=== PATIENT | female | born 1995 | race Caucasian/White ===

== ENCOUNTER 2024-12-24 10:09 | Outpatient (CLI) | payer BC, SELFPAY ==
--- OUTSIDE RECORDS SUMMARY | 2024-12-24 10:31 | XMS_ITS | Clinical Summary ---
Author Organization [facility] Address 1 [place] [address] Care Team Providers Care Realty Specialist Name Role Phone Enedina Brand MD Primary Care Provide r Allergies No known active allergies Medications meclizine (ANTIVERT) 12.5 mg tabletIndicatio ns:Vertigo Take 1 tablet (12.5 mg total) by mouth 3 (three) times a day as needed for dizziness 30 tablet 4 2 Active benzonatate (TESSALON) 100 mg capsuleIndicati ons:Cough Take 1 capsule (100 mg total) by mouth 3 (three) times a day as needed for cough 42 capsule 4 Active Active Problems Problem Noted Date Diagnosed Date Hair loss 05/05/2023 Assessment & Plan (05/05/2023 3:44 PM CDT): New Worsening Likely from stopping the control Recommend rogaine, black castor oil, and mielle organic oil to help Start with the rogaine for 3 months to see any changes then try the other options TSH ordered F/u if no improvement Class 1 obesity with body ma ss index (BMI) of 31.0 to 31.9 in adult 05/05/2023 Assessment & Plan (05/05/2023 3:44 PM CDT): She was counseled on the importance of maintaining a healthy weight and the risks of obesity. Weight loss recommended. Encounter for wellness examination 01/27/2023 Assessment & Plan (05/05/2023 3:45 PM CDT): Ordered CBC, cmp, lipid, hgb a1c, HIV, hep c, TSH w/ reflex to t4 Flu declines F/u in 1 year for annual Mild intermittent asthma without complication Assessment & Plan (05/03/2023 1:55 PM CDT): Stable / clinically quiescent. Will continue to monitor. BMI 32.0-32.9,adult 07/07/2017 Resolved Problems Problem Noted Date Diagnosed Date Resolved Date Abdominal wall strain, initial encounter 10/13/2019 06/13/2020 Acute suprapubic pain 10/13/20192019 Mild persistent asthma with acute exacerbation 07/07/2017 06/13/2020 Assessment & Plan (07/07/2017 10:54 AM LINUX UNIX SYSTEM ADMINISTRATOR): Asthma seems stable at this time based on subjective data. Very mild wheezing the right upper lobe to which I advised patient to start back on her Advair 250/50 mcg 1 puff twice daily along with refilling her ProAir to use p.r.n.. For the exacerbation however I did prescribed Medrol Dosepak to take as prescribed additionally will take about 5-7 days for the Advair to kick in tablets stability of asthma. We discussed doing a spirometry test to which she said she is fine to wait on considering her acute exacerbation it might through the testing accuracy off. We will touch base with her here in a month and see how the asthma is going and certainly sooner if there is worsening in symptoms after completing management advised office today. Encounters Date Type Department Care Team Description 12/18/2024 Telephone [facility] Primary Care at [address] [place] [address] Enedina Brand MD 09/28/2024 8:45 AM LINUX UNIX SYSTEM ADMINISTRATOR Office Visit [facility] [place] [address] [place] [address] Alma Schumacher, BURN OUT SCARFING OPERATOR COVID-19 (Primary Dx) from Last 3 Months Immunizations Immunization Administration Dates Next Due DTP / HiB 1996,1996,1996 DTaP, Unspecified 09/22/2000,07/17/1997 Hep B, Unspecified 1996,1996, 996 HiB 04/17/1997 IPV 09/22/2000 Influenza, Quadrivalent, Spl it, Preservative Free, Intramuscular 05/23/2021,06/13/2020,06/21/2019,04/25,05/12/2017 Influenza, Trivalent, Preser vative Free, Intramuscular 06/10/2011 MMR 09/22/2000,04/17/1997 Meningococcal Conjugate (Menveo) 02/08/2012 Meningococcal Polysaccharide (Menomune) 04/13/2008 OPV 07/17/1997,1996,1996 Tdap 09/10/2016,02/03/2006 Surgical History Surgery Date Site/Laterality Comments OTHER SURGICAL HISTORY 01-[place]: Dr. Darrius Menendez Medical History Medical History Date Comments Airway hyperreactivity Asthma; C omments: JEC 11/17/2016 - Migraine headache Headache, migr juliet Hx Other Medical 01-[place] Family History Medical History Relation Name Comments Other Father Alive and well; Diabetes Maternal Grandfather Diabete s mellitus; Other Mother Alive and well; Other Other 1 No family histo ry of Cancer, colon; Other Other 2 No family histo ry of Early Heart Disease; Asthma Sister Asthma; Relation Name Status Comments Father Alive Maternal Grandfather Mother Alive Other 1 Other 2 Sister Social History Tobacco Use Types Packs/Day Years Used Date Smoking Tobacco: Never Smokeless Tobacco: Never Tobacco Cessation:Counseling Given: Not Answered Alcohol Use Standard Drinks/Week Comments No 0 (1 standard drink = 0.6 oz pur e alcohol) PHQ-2 Answer Date Recorded PHQ-2 Total Score (If total score is 3 or more points, staff should administer the PHQ-9) 0 05/05/2023 Comments No Sex and Gender Information Value Date Recorded Sex Assigned at Not on file Legal Sex Female 3:58 AM LINUX UNIX SYSTEM ADMINISTRATOR Gender Identity Female 06/25/2021 6:46 AM LINUX UNIX SYSTEM ADMINISTRATOR Sexual Orientation Not on file Obstetrics History Last Filed Vital Signs Vital Sign Reading Time Taken Comments Blood Pressure 128/78 09/28/2024 8:52 AM LINUX UNIX SYSTEM ADMINISTRATOR Pulse 118 09/28/2024 8:52 AM LINUX UNIX SYSTEM ADMINISTRATOR Temperature 36.5 C (97.7 F) 09/28/2024 8:52 AM LINUX UNIX SYSTEM ADMINISTRATOR Respiratory Rate 20 09/28/2024 8:52 AM LINUX UNIX SYSTEM ADMINISTRATOR Oxygen Saturation 99% 09/28/2024 8:52 AM LINUX UNIX SYSTEM ADMINISTRATOR Inhaled Oxygen Concentration - - Weight 87.1 kg (192 lb) 09/28/2024 8:52 AM LINUX UNIX SYSTEM ADMINISTRATOR Height 160 cm (5' 3 ) 09/28/2024 8:52 AM LINUX UNIX SYSTEM ADMINISTRATOR Body Mass Index 34.01 09/28/2024 8:52 AM LINUX UNIX SYSTEM ADMINISTRATOR Plan of Treatment Health Maintenance Due Date Last Done Comments Cervical Cancer Screening 1996 Varicella Vaccines (1 of 2 - 13+ 2-dose series) 01/13/2009 Pneumococcal vaccine <65 (1 of 2 - PCV) 01/13/2015 Covid-19 Vaccine ( season) 2024 11/18/2020, 10/28/2020 Depression Screening 05/05/2024 05/05/2023, 10/30/2021, 07/02/2021, Additional history exists Regular Well Visit/Exam 18-64 05/05/2024 05/05/2023, 07/02/2021, 06/13/2020 Influenza Vaccine (Season Ended) 2025 05/23/2021, 06/13/2020, 06/21/2019, Additional history exists DTaP/Tdap/Td Vaccine (8 - Td or Tdap) 09/10/2026 09/10/2016, 02/03/2006, 09/22/2000, Additional history exists Hepatitis B Screening Completed 1996 , 1996, 1996 Hepatitis C Screening Completed 05/12/2023 HPV Vaccines Aged Out No longer eligi ble based on patient's age to complete this topic Procedures Procedure Name Priority Date/Time Associated Diagnosis Comments POC INFLUENZA A/B, COVID-19 ANTIGEN Routine 09/28/2024 9:03 AM LINUX UNIX SYSTEM ADMINISTRATOR COVID-19 HEPATITIS C ANTIBODY Routine 05/12/2023 8:18 AM CDT Preventative health care Need for hepatitis C screening test from Last 3 Months or Most Recently Relevant to Health Maintenance Results * (ABNORMAL) POC Influenza A/B, COVID-19 antigen (09/28/2024 9:03 AM LINUX UNIX SYSTEM ADMINISTRATOR) Influenza A Ag, POC Negative Negative [facility] Influenza B Ag, POC Negative Negative [facility] COVID-19 Ag POC Positive(A) Presumptive Negative, Invalid [facility] Nasal 09/28/2024 9:03 AM LINUX UNIX SYSTEM ADMINISTRATOR Alma Schumacher NP POINT OF CARE TEST ORDERABLES Fi nal Result Performing Organization Address [facility]/ZIP Co de Phone Number [facility] [address] [place] [address], [facility] * Hepatitis C antibody Blood (05/12/2023 8:18 AM CDT) Pathologist [facility] Hep C Ab Nonreactive Nonreactive Comment: Interpretive Data Nonreactive: Antibodies to HCV not detected. Does NOT exclude the possibility of recent exposure to HCV. Equivocal: Equivocal for HCV antibodies. Supplemental molecular testing will be automatically performed to determine infection status in accordance with current CDC screening recommendations. Reactive: Positive for HCV antibodies. This may represent current or past HCV infection. Supplemental molecular testing will be automatically performed to determine current infection status in accordance with current CDC screening recommendations. Interpretive data was last revised on 2019. Testing performed by: [facility], [address] [place] [address]., [id number] Blood 05/12/2023 8:18 AM CDT 05/12/2023 12:07 PM CDT Narrative KASEY MASTERSON (MARCELLE) - 05/12/2023 1:04 PM CDT fasting Enedina Brand MD LAB MICROBIOL OGY - GENERAL ORDERABLES Edited Result - Final KASE[facility] MASTERSON (MARCELLE) 1 [facility] [place] [address] from Last 3 Months or Most Recently Relevant to Health Maintenance Additional Health Concerns Infection Onset Date Last Indicated COVID: Recovered Comment:Added based on recent COVID infection. 10/08/2024 025 Insurance ANTHEM ACCESS Care Teams Realty Specialist Relationship Specialty Start Date End Date Enedina Brand MD [address] [place] [address] PCP - General Family Medicine 05/06/23
--- OUTSIDE RECORDS SUMMARY | 2024-12-24 10:31 | XMS_ITS | Referral Summary ---
Author Organization [facility] Address 1 [place] [address] Care Team Providers Care Light Fixture Servicer Name Role Phone Enedina Brand MD Primary Care Provide r Encounters Date Type Department Care Team Description 12/18/2024 Telephone [facility] Primary Care at [place] [address] [facility] [address] [place] [address] Enedina Brand MD 09/28/2024 8:45 AM HANDBAG DESIGNER Office Visit [facility] at [place] [address] [place] [address] Alma Schumacher NP COVID-19 (Primary Dx) from Last 3 Months Allergies No known active allergies Medications meclizine [...] 06/13/2020 Assessment & Plan (07/07/2017 10:54 AM HANDBAG DESIGNER): Asthma seems stable at this time based [...] symptoms after completing management advised office today. Immunizations Immunization Administration Dates Next Due DTP / HiB 1996,1996,1996 DTaP, Unspecified 09/22/2000,07/17/1997 Hep B, Unspecified 1996,1996, 996 HiB 04/17/1997 IPV 09/22/2000 Influenza, Quadrivalent, Spl it, Preservative Free, Intramuscular 05/23/2021,06/13/2020,06/21/2019,04/25,05/12/2017 Influenza, Trivalent, Preser vative Free, Intramuscular 06/10/2011 MMR 09/22/2000,04/17/1997 Meningococcal Conjugate (Menveo) 02/08/2012 Meningococcal Polysaccharide (Menomune) 04/13/2008 OPV 07/17/1997,1996,1996 Tdap 09/10/2016,02/03/2006 Social History Tobacco Use Types Packs/Day Years [...] on file Legal Sex Female 3:58 AM HANDBAG DESIGNER Gender Identity Female 06/25/2021 6:46 AM HANDBAG DESIGNER Sexual Orientation Not on file Last Filed Vital Signs Vital Sign Reading Time Taken Comments Blood Pressure 128/78 09/28/2024 8:52 AM HANDBAG DESIGNER Pulse 118 09/28/2024 8:52 AM HANDBAG DESIGNER Temperature 36.5 C (97.7 F) 09/28/2024 8:52 AM HANDBAG DESIGNER Respiratory Rate 20 09/28/2024 8:52 AM HANDBAG DESIGNER Oxygen Saturation 99% 09/28/2024 8:52 AM HANDBAG DESIGNER Inhaled Oxygen Concentration - - Weight 87.1 kg (192 lb) 09/28/2024 8:52 AM HANDBAG DESIGNER Height 160 cm (5' 3 ) 09/28/2024 8:52 AM HANDBAG DESIGNER Body Mass Index 34.01 09/28/2024 8:52 AM HANDBAG DESIGNER Plan of Treatment Not on file Procedures Procedure Name Priority Date/Time Associated Diagnosis Comments POC INFLUENZA A/B, COVID-19 ANTIGEN Routine 09/28/2024 9:03 AM HANDBAG DESIGNER COVID-19 HEPATITIS C ANTIBODY Routine 05/12/2023 8:18 AM CDT Preventative health care Need for hepatitis C screening test from Last 3 Months or Most Recently Relevant to Health Maintenance Results * (ABNORMAL) POC Influenza A/B, COVID-19 antigen (09/28/2024 9:03 AM HANDBAG DESIGNER) Influenza A Ag, POC Negative Negative [facility] Influenza B Ag, POC Negative Negative [facility] COVID-19 Ag POC Positive(A) Presumptive Negative, Invalid [facility] Nasal 09/28/2024 9:03 AM HANDBAG DESIGNER Alma Schumacher NP POINT OF CARE TEST ORDERABLES Fi nal Result [facility] [address] [place] [address] * Hepatitis C antibody Blood (05/12/2023 8:18 AM CDT) Pathologist [facility] Hep C Ab Nonreactive Nonreactive Comment: Interpretive [...] last revised on 2019. Testing performed by: [facility], [address] [place] [address], [place]., [address] Blood 05/12/2023 8:18 AM CDT 05/12/2023 12:07 PM CDT Narrative [facility] ([place]) - 05/12/2023 1:04 PM CDT fasting Enedina Brand MD LAB MICROBIOL OGY - GENERAL ORDERABLES Edited Result - Final [facility] ([place]) [address] [facility] Department [place] [address] from Last 3 Months or Most Recently Relevant to Health Maintenance Additional Health Concerns Infection Onset Date Last Indicated COVID: Recovered Comment:Added based on recent COVID infection. 10/08/2024 025 Insurance ANTHEM ACCESS Care Teams Light Fixture Servicer Relationship Specialty Start Date End Date Enedina Brand MD [address] [place] [address] PCP - General Family Medicine 05/06/23
[2024-12-24 10:52] LABS: Add Urine Microscopic? YES; Appearance Urine Clear (Clear); Bacteria Urine 1+ /hpf; Bilirubin Urine Negative (Negative); Blood Urine Negative (Negative); Color Urine Yellow (Yellow); Glucose Urine UA Negative (Negative); Ketones Urine Negative (Negative); Leukocyte Esterase Ur Trace LEU/UL (Negative); Nitrate Urine Negative (Negative); Non Pathogenic Casts 0-2; Protein Urine Negative (Negative); RBC Urine 0-2 /hpf (0-2); Specific Grav Ur 1.004 (1.001-1.035); Squamous Epithelial Cell Urine Occasional /hpf (Few); Urobilinogen Urine 0.2 mg/dL (<2.0); WBC Urine 0-5 /hpf (0-3)
--- NOTE | 2024-12-24 11:30 | PC.NURSE ---
Called Dr. Wilkerson with lab results. She ordered Rocephin 250mg IM and then discharge pt to home.
[2024-12-24] MEDS: cefTRIAXone 250 MG VIAL IM (11:53)
[2024-12-24 12:04] VITALS: BP 104/65; PULSE 86
== END 2024-12-24 12:00 | disposition home or self-care (01) ==
LOC: ANHOBOP 10:30 → ANHLDR 10:34
PROVIDERS: Visit Provider Obstetrics & Gynecology
DX: O26.899 Other specified pregnancy related conditions, unspecified trimester (principal)
CPT/HCPCS: 59025; 81001; 96372; 99199; J0696

== ENCOUNTER 2024-12-25 16:01 | Inpatient (IN) | payer BC, SELFPAY ==
[2024-12-25] VITALS (108 sets, daily range): BP systolic 100–142; BP diastolic 56–80; PULSE 59–119; TEMP 36.1; O2SAT 95–100; BMI 36.3
--- OUTSIDE RECORDS SUMMARY | 2024-12-25 16:05 | XMS_ITS | Clinical Summary ---
Author Organization [facility] Address 1 [place] [address] Care Team Providers Care Talent Development Specialist Name Role Phone Enedina Brand MD [...] 06/13/2020 Assessment & Plan (07/07/2017 10:54 AM WEIGH BOSS): Asthma seems stable at this time based [...] Type Department Care Team Description 12/18/2024 Telephone [facility] Primary Care at [address] [place] [address] Enedina Brand MD 09/28/2024 8:45 AM WEIGH BOSS Office Visit [facility] [place] [address] [place] [address] Alma Schumacher, CONTROL PANEL ASSEMBLER COVID-19 (Primary Dx) from Last 3 Months [...] Surgery Date Site/Laterality Comments OTHER SURGICAL HISTORY 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 Darrius Menendez Medical History Medical History Date Comments Airway hyperreactivity Asthma; C omments: JEC 11/17/2016 - Migraine headache Headache, migr juliet Hx Other Medical 01-Route Process Administrator Family History Medical History Relation Name Comments [...] on file Legal Sex Female 3:58 AM WEIGH BOSS Gender Identity Female 06/25/2021 6:46 AM WEIGH BOSS Sexual Orientation Not on file Obstetrics History Last Filed Vital Signs Vital Sign Reading Time Taken Comments Blood Pressure 128/78 09/28/2024 8:52 AM WEIGH BOSS Pulse 118 09/28/2024 8:52 AM WEIGH BOSS Temperature 36.5 C (97.7 F) 09/28/2024 8:52 AM WEIGH BOSS Respiratory Rate 20 09/28/2024 8:52 AM WEIGH BOSS Oxygen Saturation 99% 09/28/2024 8:52 AM WEIGH BOSS Inhaled Oxygen Concentration - - Weight 87.1 kg (192 lb) 09/28/2024 8:52 AM WEIGH BOSS Height 160 cm (5' 3 ) 09/28/2024 8:52 AM WEIGH BOSS Body Mass Index 34.01 09/28/2024 8:52 AM WEIGH BOSS Plan of Treatment Health Maintenance Due Date [...] A/B, COVID-19 ANTIGEN Routine 09/28/2024 9:03 AM WEIGH BOSS COVID-19 HEPATITIS C ANTIBODY Routine 05/12/2023 8:18 AM CDT Preventative health care Need for hepatitis C screening test from Last 3 Months or Most Recently Relevant to Health Maintenance Results * (ABNORMAL) POC Influenza A/B, COVID-19 antigen (09/28/2024 9:03 AM WEIGH BOSS) Influenza A Ag, POC Negative Negative [facility] Influenza B Ag, POC Negative Negative [facility] COVID-19 Ag POC Positive(A) Presumptive Negative, Invalid [facility] Nasal 09/28/2024 9:03 AM WEIGH BOSS Alma Schumacher NP POINT OF CARE TEST ORDERABLES Fi nal Result Performing Organization Address [facility]/ZIP Co de Phone Number [facility] [address] [place] [address], [facility] * Hepatitis C antibody Blood (05/12/2023 8:18 AM CDT) Pathologist [facility] Hep C Ab Nonreactive Nonreactive Comment: Interpretive [...] last revised on 2019. Testing performed by: [facility], [address] [place] [address]., [address] Blood 05/12/2023 8:18 AM CDT 05/12/2023 12:07 PM CDT Narrative KASEY MASTERSON (MARCELLE) - 05/12/2023 1:04 PM CDT fasting Enedina Brand MD LAB MICROBIOL OGY - GENERAL ORDERABLES Edited Result - Final KASEY MASTERSON (MARCELLE) 1 [facility] [place] [address] from Last 3 Months or Most Recently Relevant to Health Maintenance Additional Health Concerns Infection Onset Date Last Indicated COVID: Recovered Comment:Added based on recent COVID infection. 10/08/2024 025 Insurance ANTHEM ACCESS Care Teams Talent Development Specialist Relationship Specialty Start Date End Date Enedina Brand MD [address] [facility] [facility] [place] [address] PCP - General Family Medicine 05/06/23
--- OUTSIDE RECORDS SUMMARY | 2024-12-25 16:05 | XMS_ITS | Referral Summary ---
Author Organization [facility] Address 1 [place] [address] Care Team Providers Care Mini Bar Attendant Name Role Phone Enedina Brand MD Primary Care Provide r Encounters Date Type Department Care Team Description 12/18/2024 Telephone [facility] Primary Care at [place] [address] [facility] [address] [place] [address] Enedina Brand MD 09/28/2024 8:45 AM MOLDING MACHINE TENDER Office Visit [facility] at [place] [address] [place] [address] Alma Schumacher NP COVID-19 (Primary Dx) from [...] 06/13/2020 Assessment & Plan (07/07/2017 10:54 AM MOLDING MACHINE TENDER): Asthma seems stable at this time based [...] on file Legal Sex Female 3:58 AM MOLDING MACHINE TENDER Gender Identity Female 06/25/2021 6:46 AM MOLDING MACHINE TENDER Sexual Orientation Not on file Last Filed Vital Signs Vital Sign Reading Time Taken Comments Blood Pressure 128/78 09/28/2024 8:52 AM MOLDING MACHINE TENDER Pulse 118 09/28/2024 8:52 AM MOLDING MACHINE TENDER Temperature 36.5 C (97.7 F) 09/28/2024 8:52 AM MOLDING MACHINE TENDER Respiratory Rate 20 09/28/2024 8:52 AM MOLDING MACHINE TENDER Oxygen Saturation 99% 09/28/2024 8:52 AM MOLDING MACHINE TENDER Inhaled Oxygen Concentration - - Weight 87.1 kg (192 lb) 09/28/2024 8:52 AM MOLDING MACHINE TENDER Height 160 cm (5' 3 ) 09/28/2024 8:52 AM MOLDING MACHINE TENDER Body Mass Index 34.01 09/28/2024 8:52 AM MOLDING MACHINE TENDER Plan of Treatment Not on file Procedures Procedure Name Priority Date/Time Associated Diagnosis Comments POC INFLUENZA A/B, COVID-19 ANTIGEN Routine 09/28/2024 9:03 AM MOLDING MACHINE TENDER COVID-19 HEPATITIS C ANTIBODY Routine 05/12/2023 8:18 AM CDT Preventative health care Need for hepatitis C screening test from Last 3 Months or Most Recently Relevant to Health Maintenance Results * (ABNORMAL) POC Influenza A/B, COVID-19 antigen (09/28/2024 9:03 AM MOLDING MACHINE TENDER) Influenza A Ag, POC Negative Negative [facility] Influenza B Ag, POC Negative Negative [facility] COVID-19 Ag POC Positive(A) Presumptive Negative, Invalid [facility] Nasal 09/28/2024 9:03 AM MOLDING MACHINE TENDER Alma Schumacher NP POINT OF CARE TEST ORDERABLES Fi nal Result [facility] [address] [place] [address] * Hepatitis C antibody Blood (05/12/2023 8:18 AM CDT) Pathologist [facility] Hep C Ab Nonreactive Nonreactive Comment: Interpretive [...] last revised on 2019. Testing performed by: [facility], [address] [place] [address], [place]., [address] Blood 05/12/2023 8:18 AM CDT 05/12/2023 12:07 PM CDT Narrative [facility] ([place]) - 05/12/2023 1:04 PM CDT fasting Enedina Brand MD LAB MICROBIOL OGY - GENERAL ORDERABLES Edited Result - Final [facility] ([place]) [address] [facility] Department [place] [address] from Last 3 Months or Most Recently Relevant to Health Maintenance Additional Health Concerns Infection Onset Date Last Indicated COVID: Recovered Comment:Added based on recent COVID infection. 10/08/2024 025 Insurance ANTHEM ACCESS Care Teams Mini Bar Attendant Relationship Specialty Start Date End Date Enedina Brand MD [address] [facility] [facility] [address] [place] [address] PCP - General Family Medicine 05/06/23
--- NOTE | 2024-12-25 16:57 | P.PNAN_ITS ---
Anes - Eval Pre Procedure Procedure: Labor epidural Date/Time: 12/25/24 16:57 Surgeon: Gemma Preop Diagnosis: pain during labor Pre Op Diagnosis: IOL Patient Data Age: 29 Gender: F Height: Weight: Allergies Allergy/AdvReac Type Severity Reaction Status Date / Time No Known Allergies Allergy Verified 11/22/24 12:46 Home Medications Medication Instructions Recorded Confirmed Type No Home Medications 11/22/24 11/22/24 History Patient hx anesthesia problems: none Family hx anesthesia problems: none Results Review: All pre-operative results and documents have been reviewed as part of the pre- operative evaluation. PMFSH Past Medical History Medical History (Updated 12/25/24 @ 16:58 by Alida Naik CRNA) IUP (intrauterine ), incidental Asthma FH: migraines Family History Family History (Updated 11/22/24 @ 12:37 by Ligia Samuel RN) Other Patient denies significant medical history Social History Social History Substance use: never Spiritual care concerns: No Exam Day of Procedure 12/25/24 16:57
[2024-12-25 17:34] LABS: Hematocrit 35.7 % (37.0-47.0); Hemoglobin 11.1 g/dL (12.0-15.0); Mean Corpuscular HGB Conc 31.1 g/dl (32-36); Mean Corpuscular Hemoglobin 25.2 pg (26-34); Mean Platelet Volume 10.1 fl (7.4-10.4); Platelet Count Result 335 k/mm3 (150-375); Red Blood Count 4.41 M/mm3 (4.2-5.4); Red Cell Distribution Width 13.8 % (11.5-14.5); White Blood Count 11.4 K/mm3 (4.5-10.0)
[2024-12-25] MEDS: LACTATED RINGERS 500 ML 999 ML IV CONT (18:18)
--- NOTE | 2024-12-25 19:45 | LDADM ---
This patient, Katya Beckman, was admitted to Labor/Delivery/Recovery 104 on 12/25/24 at 16:01. Plans for labor, pain management and were discussed with patient. Patient/family oriented to hospital policies and general routines including ID bracelet, bed and alarms, visiting hours, pain management, procedures, bathroom and other care routines, personal items, smoking policy, room service/diet and guest tray routines, security routines, and visiting hours. Patient/Family are encouraged to report perceived risks to care and to ask questions if they do not understand what they are told or what they should do. See OBIX for further documentation.
[2024-12-25 20:00] LABS: HIV 1/2 Ab P24 Ag Result Negative (Negative)
[2024-12-25 20:32] LABS: Syphilis IgG/IgM Antibody Negative (Negative)
[2024-12-26] VITALS (110 sets, daily range): BP systolic 92–158; BP diastolic 46–133; PULSE 46–172; RESP 16–18; TEMP 36.2–37.1; O2SAT 78–100
[2024-12-26] MEDS: OXYTOCIN 30 UNITS/NS 500 ML 30 UNITS/500 ML BAG IV CONT (00:06)
--- NOTE | 2024-12-26 04:36 | WPDOBADMIT ---
Obstetrics - Admit Note Admission Note: record reviewed. Additions to the history and/or subsequent changes in the physical findings follow. 29 y/o G1 at 40 5/7 weeks who presented to the hospital yesterday afternoon with contractions. Labor was diagnosed. She received an epidural for pain control. Had SROM with clear fluid. Labor now being augmented with oxytocin. Cervix now complete and she is pushing. GBS neg. EFW at 39.5 weeks was 7#13 oz by ultrasound. AVSS NST reactive TOCO: contractions every 3-5 min ABD soft, nontender, gravid EXT nontender Cervix C/+2 A: IUP at 40 5/7 weeks with labor. P: Anticipate . Continue pushing.
--- NOTE | 2024-12-26 05:21 | PM.OBPRVD ---
OB - Vaginal Delivery Note Procedure Delivery date: 12/26/24 Induction method: None Delivery monitor: External FHT and External Uterine Route of delivery: Episiotomy description: None Laceration Description: Periurethral and Perineal - 1st Degree Delivery repair: vicryl (3-0) Specimen: Yes (cord blood) Quantitative Blood Loss (ml): 180 Anesthesia type: Epidural Disposition: PACU Complications: None Narrative: 29 y/o G1 at 40 5/7 weeks gestation who presented to the hospital with contractions. Labor was diagnosed. She received an epidural for pain control. She had SROM with clear fluid. Labor was subsequently augmented with oxytocin. Oxytocin was administered. Her labor progressed and her cervix dilated completely. She pushed with good effort and delivered the 's head to the perineum, followed by the body. The nose and mouth were bulb suctioned. After a delay, the cord was clamped and cut. The was handed off the field. Cord blood was collected. The placenta delivered spontaneously and was grossly normal in appearance. The usual 3 vessel cord was noted. A first degree midline perineal laceration was sustained. This was reapproximated using 3 0 Vicryl in running fashion. A shallow periurethral laceration was reapproximated with a figure of eight suture of the same material. Excellent hemostasis resulted as did excellent reapproximation of the normal anatomy. Needle and instrument counts were correct. The patient was taken to recovery room in stable condition. The went to the nursery in stable condition. I was present and scrubbed for the entire delivery. Baby Date of : 12/26/24 Time of : 05:06 Gestational Age by Date: 40 gender: Male presentation: vertex position: Left Occiput Anterior Placenta delivery description: Spontaneous and Normal Configuration Cord Vessel Description: 3 Vessels and Delayed Cord Clamping score one minute: 8 score five minutes: 9
--- NOTE | 2024-12-26 05:24 | PM.OBDSVD ---
DS: Admitting Diagnosis Discharge Date 12/28/24 Admitting Diagnosis IUP at 40 5/7 weeks Labor DS: Discharge Diagnosis Discharge Diagnosis (1) (normal spontaneous vaginal delivery): Code(s): O80 - Encounter for full-term uncomplicated delivery Status: Acute OB - DS: Summary OB Procedures : None OB Procedures Intrapartum: Spontaneous Vag Delivery OB Procedures: : None Peripartum Data Laceration Description: Periurethral and Perineal - 1st Degree Episiotomy description: None Time Spent with Patient Time attestation: Total time spent providing and/or coordinating discharge services: DS: Data Data Completed and Pending Labs on day of discharge: Labs from last 24 hours 12/25/24 17:00 WBC 11.4 H RBC 4.41 Hgb 11.1 L Hct 35.7 L MCV 81.0 MCH 25.2 L MCHC 31.1 L RDW 13.8 Plt Count 335 MPV 10.1 Syphilis IgG/IgM Ab Negative HIV 1&2 Ab/P24 Ag 4thGn Negative Blood Type A Positive Antibody Screen Negative Discharge Plan Discharge Attending physician on discharge: Darrius Menendez Discharging Clinician: Darrius Menendez Patient Disposition: Home Activity: pelvic rest Diet: regular Discharge Instructions: Call or return if temperature above 100.4° F, increased abdominal pain, increased vaginal bleeding or any new problems. Education: Mom and Baby Guide Given to: Mother Follow-Up: Call your delivering provider's office for an appointment to be seen in: 4 Weeks Mom and baby should come [facility] for the follow-up appointment. Appointment Date/Time: December 29, 2024 at 9:00 am What to expect at your follow-up visit: Blood Pressure Check Physical Assessment Call [phone] if you are unable to keep your appointment time. BREAST CARE: * Wear a snug supportive bra. * For engorgement discomfort: Breast Feeding: * Apply warm moist washcloths * Express milk as needed to relieve engorgement * Wear loose clothing Bottle Feeding: * May apply ice packs * For sore nipples: * Identify correct latch-on * Apply warm moist washcloths before and after nursing * Air dry nipples after nursing * May apply Lansinoh cream to nipples EPISIOTOMY/PERINEAL CARE: * Until bleeding stops, use your sher bottle after urinating * Change your pad frequently throughout the day * You may take sitz baths several times a day (fill your bathtub with warm water and soak for 20 minutes.) Do NOT bathe in the water * No tub baths until seen by your physician - You may shower ACTIVITY: * Rest as much as possible. * Do not exercise or lift anything heavier than your baby (such as laundry or other children.) * Avoid stairs or driving as much as possible. * Do not put anything into the vagina. No douching, tampons, or sexual activity until seen by physician. NOTIFY PHYSICIAN IF YOU HAVE ANY QUESTIONS OR IF ANY OF THE FOLLOWING SYMPTOMS OCCUR: * If your episiotomy or incision becomes red, swollen, or more painful than what you have experienced in the hospital. * If your vaginal bleeding becomes foul smelling. * If your vaginal bleeding becomes more heavy than a period or if your bleeding changes from pink to bright red. However, you may pass an occasional walnut-sized clot once or twice for the first week . * If you experience a sharp, shooting pain in you calves. * If you discover a hard, reddened area on your breast or if you experience flu-like symptoms. DIET: * Eat regular, well-balanced meals. * Drink plenty of fluids daily. If , drink to thirst. Patient Language: Luxembourgish Stand Alone Forms: General Discharge Information Follow-up/Referrals: Darrius Menendez MD [Physician] - 6 Weeks Discharge Medications: New Classic 28 mg iron- 800 mcg tablet 1 tablet PO DAILY Qty: 90 0RF ibuprofen 600 mg tablet 600 mg PO Q6H PRN (Reason: cramps) Qty: 30 0RF ferrous sulfate 325 mg (65 mg iron) tablet 325 mg PO DAILY Qty: 30 0RF Date of admission: 12/25/24 16:01 Primary Care Provider: Raj Beckett,Ened[place] Admitting Provider: Darrius Menendez Attending physician on admission: Darrius Menendez Condition: Stable
[2024-12-26] MEDS: OXYTOCIN 30 UNITS/NS 500 ML 30 UNITS/500 ML BAG 125 UNITS IV CONT (05:42)
[2024-12-26] MEDS: BENZOCAINE 20% AER SPR (*SP) 56 GM CAN 1 SPRAY TOPICAL (07:26)
[2024-12-26] MEDS: WITCH HAZEL 40 PADS 1 PAD TOPICAL (07:26)
--- NOTE | 2024-12-26 08:21 | PC.NURSE ---
Patient transferred to post room #292 via wheelchair. Support person present. Oriented to unit, room, information board, rooming in, admission packet and security measures. Patient verbalizes understanding.
[2024-12-26] MEDS: DOCUSATE SODIUM 100 MG CAPSULE PO (08:51)
[2024-12-26] MEDS: MULTIVIT/MIN/PREN/FOL AC/IRON TABLET 1 TAB PO (08:51)
[2024-12-26] MEDS: IBUPROFEN 600 MG TABLET PO ×2 (08:52→19:09)
--- NOTE | 2024-12-26 09:00 | PC.NURSE ---
Patient admitted to floor and is ready to feed baby. Mom was given a nipple shield for the first feeding. She has everted nipples and soft enough breasts that a good 'bite' can be made for baby to latch on to. The first latch we obtained was pinchy so mom was shown how to use her finger to break suction. We compressed closer to the nipple and baby was able to get an optimal deep latch and mom could feel the difference in comfort. She is encouraged to keep baby stimulated for 15 minutes if able, and to offer the second breast if he desires. Educated mom on cross cradle positioning, keeping baby hugged close to the breast throughout the feeding, and how to observe his chin and nose close to the breast for optimal latch and feeding. Dad present and supportive, mom very receptive to teaching. Patient may call out at any/all feedings for assistance. RN updated.
[2024-12-27 06:04] LABS: Hematocrit 32.8 % (37.0-47.0); Hemoglobin 9.8 g/dL (12.0-15.0)
[2024-12-27 08:00] VITALS: BP 106/62; PULSE 83; RESP 16; TEMP 36.3; O2SAT 98
[2024-12-27] MEDS: DOCUSATE SODIUM 100 MG CAPSULE PO ×2 (08:28→17:35)
[2024-12-27] MEDS: POLYSACCHARIDE IRON COMPLEX 150 MG CAPSULE PO ×2 (08:28→17:35)
[2024-12-27] MEDS: MULTIVIT/MIN/PREN/FOL AC/IRON TABLET 1 TAB PO (08:28)
--- NOTE | 2024-12-27 10:05 | WPDANLDPN2 ---
Anes-Prog Note L&D Date/Time: 12/27/24 10:05 Neuro status: Neuro function grossly intact. Cardiovascular status: normal Respiratory status: normal Airway patency: baseline Mental status: baseline Post-Op hydration status: normal Vital Signs: Last Vital Signs Temp 36.3 C L 12/27/24 08:00 Pulse 83 12/27/24 08:00 Resp 16 12/27/24 08:00 BP 106/62 12/27/24 08:00 Pulse Ox 98 12/27/24 08:00 O2 Del Method Room Air 12/26/24 23:46 Pain score (VAS): 0 I/O: Intake & Output 12/26/24 12/27/24 12/27/24 23:59 07:59 15:59 Intake Total 480 Balance 480 Post-procedural complaints: none Patient feedback: Patient satisfied with anesthetic care.
--- NOTE | 2024-12-27 14:48 | P.PNOB_ITS ---
OB - PN: Subj Subjective Date/time seen: 12/27/24 14:48 Narrative: Pain OK. Would like circumcision for son. OB - PN: Obj Data Labs 12/27/24 05:53 Labs: Laboratory Results - last 24 hr 12/27/24 05:53 Hgb 9.8 L Hct 32.8 L OB - PN A/P Plan Comments: A: PPD#1, doing well. P: Reviewed circ. Routine care. Exam 2 Psych: Other: AVSS ABD soft, nontender, fundus firm EXT nontender
[2024-12-27 19:24] VITALS: BP 122/75; PULSE 80; RESP 16; TEMP 36.8; O2SAT 100
[2024-12-28 07:10] VITALS: BP 110/67; PULSE 73; RESP 18; TEMP 36.6; O2SAT 98
[2024-12-28] MEDS: POLYSACCHARIDE IRON COMPLEX 150 MG CAPSULE PO (07:10)
[2024-12-28] MEDS: MULTIVIT/MIN/PREN/FOL AC/IRON TABLET 1 TAB PO (07:10)
[2024-12-28] MEDS: DOCUSATE SODIUM 100 MG CAPSULE PO (07:10)
--- NOTE | 2024-12-28 09:00 | PC.NURSE ---
Consulted with patient to assess needs related to . Mother expressed that has been able to nurse but does not appear to be full once finished at the breast. Mother is currently pumping with the hospital pump using size 21mm flange (which is not the appropriate size - patient aware, hospital does not offer flange below 21mm at this time) and is giving infant the pumped breast milk after feedings at the breast. Mother states that she does have a personal breast pump at home with the appropriate sized flange that she is familiar with using. Patient states that she has been pumping during and was able to use her personal breast pump at that time. Beyond this, patient denies any additional questions. Encouraged patient to call this RN to observe next feeding to assess latch. Mother verbalized understanding.
--- NOTE | 2024-12-28 12:27 | P.PNOB_ITS ---
OB - PN: Subj Subjective Date/time seen: 12/28/24 12:27 Narrative: Pain OK. Would like to go home. OB - PN: Obj Data Labs 12/27/24 05:53 OB - PN A/P Plan day: 2 Comments: A: PPD#2, doing well. P: Home to f/u 6 weeks. Exam 2 Psych: Other: AVSS ABD soft, nontender, fundus firm EXT nontender
[2024-12-29 09:35] VITALS: BP 120/68; PULSE 90; RESP 18; TEMP 37; O2SAT 100
== END 2024-12-28 13:54 | disposition home or self-care (01) | DRG 807 ==
LOC: ANHLDR 12-26 05:25 → ANHOB2 12-26 08:27
PROVIDERS: Admitting Provider Obstetrics & Gynecology; Visit Provider Obstetrics & Gynecology
DX: O70.0 First degree perineal laceration during delivery (principal); Z37.0 Single live birth; Z3A.40 40 weeks gestation of pregnancy; O71.82 Other specified trauma to perineum and vulva
CPT/HCPCS: 36415; 85014; 85018; 85027; 86593; 86703; 86850; 86900; 86901; A9270; G0432; J2590; J2795; J7120